=== PATIENT | female | born 1975 | race African-American/Black ===

== ENCOUNTER 2016-09-20 22:17 | Emergency (ER) | payer BC ==
[2016-09-20 22:54] LABS: BASOPHILS 0.4 %; BASOPHILS ABSOLUTE 0.05 10/3/uL (0.0-0.16); EOSINOPHILS 2.7 %; EOSINOPHILS ABSOLUTE 0.33 10/3/uL (0.0-0.53); HEMATOCRIT 26.1 % (36.0-48.0); HEMOGLOBIN 7.6 g/dL (12.0-16.0); IMMATURE GRANULOCYTES 0.9 %; IMMATURE GRANULOCYTES ABSOLUTE 0.11 10/3/uL (0.0-0.11); LYMPHOCYTES 21.7 %; LYMPHOCYTES ABSOLUTE 2.64 10/3/uL (0.67-4.30); MANUAL DIFF NO %; MEAN CORPUS HGB CONC 29.1 g/dL (32.0-36.0); MEAN CORPUSCULAR HEMOGLOB 20.4 pg (26.0-34.0); MONOCYTES 4.4 %; MONOCYTES ABSOLUTE 0.54 10/3/uL (0.21-1.20); NEUTROPHILS 69.9 %; PLATELET COUNT 485 10/3/uL (150-400); RBC DISTRIBUTION WIDTH 20.3 % (12.0-16.0); RED CELL COUNT 3.73 10/6/uL (4.0-5.6); WHITE BLOOD CELLS 12.2 10/3/uL (4.5-10.5)
[2016-09-20 23:05] LABS: INTERNATIONAL NORMAL RATI 1.1 UNITS (-); PROTIME (NOT ORD) 13.8 SEC (12.0-14.5)
[2016-09-20 23:06] LABS: PARTIAL THROMBO TIME 31.7 SEC (22.5-37.2)
[2016-09-20 23:09] LABS: A/G RATIO 0.7 (0.7-1.9); ALBUMIN 3.2 G/DL (3.5-5.0); ALKALINE PHOSPHATASE 74 U/L (45-117); BUN (BLOOD UREA NITROGEN) 12 MG/DL (6-23); CALCIUM, SERUM 8.8 MG/DL (8.5-10.4); CHLORIDE, SERUM 103 MMOL/L (96-112); CO2 (CARBON DIOXIDE) 32 MMOL/L (24-34); CREATININE 0.84 MG/DL (0.55-1.02); GFR AFRICAN AMERICAN 100 ML/MIN (>=60); GFR NON AFRICAN AMERICAN 86 ML/MIN (>=60); GLOBULIN 4.3 G/DL (2.5-4.1); GLUCOSE, SERUM 124 MG/DL (60-99); POTASSIUM, SERUM 3.4 MMOL/L (3.5-5.3); SGOT(AST) 12 U/L (5-40); SGPT(ALT) 16 U/L (5-65); SODIUM, SERUM 143 MMOL/L (135-148); TOTAL BILIRUBIN 0.2 MG/DL (0-1.2); TOTAL PROTEIN 7.5 G/DL (6.0-8.5)
[2016-09-20 23:11] LABS: PLATELET ESTIMATE SLT INC (ADEQUATE)
[2016-09-20 23:12] LABS: RBC MORPHOLOGY ABN (NORMAL)
== END 2016-09-21 01:51 | disposition home or self-care (01) ==
LOC: ER 22:17
PROVIDERS: Emergency Medicine
DX: N94.6 Dysmenorrhea, unspecified (principal); D64.9 Anemia, unspecified; J45.909 Unspecified asthma, uncomplicated
CPT/HCPCS: 36415; 80053; 85025; 85610; 85730; 86850; 86900; 86901; 96372; 99284; J1170; J1885